=== PATIENT | female | born 1985 | race Caucasian/White ===

== ENCOUNTER 2020-11-24 02:23 | Emergency (ER) | payer OTHER ==
[~2020-11-24] VITALS: Ht 167.6 cm; Wt 79.5 kg
[2020-11-24] MEDS ORDERED: NS 1,000 ML IV ONE (02:45)
[2020-11-24 02:53] LABS: HEMATOCRIT 44.3 % (36.0-47.0); HEMOGLOBIN 14.7 g/dl (12.0-15.5); MEAN CORPUSCULAR HEMOGLOBIN 26.8 pg (27.0-33.0); MEAN CORPUSCULAR HGB CONC 33.2 g/dl (32.0-36.5); MEAN CORPUSCULAR VOLUME 80.8 fl (80.0-96.0); PLATELET COUNT, AUTOMATED 280 10^3/uL (150-450); RED BLOOD COUNT 5.48 10^6/uL (4.00-5.40); WHITE BLOOD COUNT 16.7 10^3/uL (4.0-10.0)
[2020-11-24 03:34] LABS: ACETAMINOPHEN LEVEL < 2.0 UG/ML (10.0-30.0); ALBUMIN 4.2 GM/DL (3.2-5.2); ALT/SGPT 31 U/L (12-78); BILIRUBIN,DIRECT 0.3 MG/DL (0.0-0.2); BILIRUBIN,TOTAL 1.3 MG/DL (0.2-1.0); BLOOD UREA NITROGEN 10 MG/DL (7-18); CALCIUM LEVEL 9.4 MG/DL (8.5-10.1); CARBON DIOXIDE LEVEL 19 MEQ/L (21-32); CHLORIDE LEVEL 106 MEQ/L (98-107); CREATININE FOR GFR 0.95 MG/DL (0.55-1.30); ETHYL ALCOHOL (ETHANOL) < 0.003 % (0.000-0.010); GLOMERULAR FILTRATION RATE > 60.0 (>60); GLUCOSE, FASTING 312 MG/DL (70-100); SALICYLATE LEVEL 2.7 MG/DL (5.0-30.0); SODIUM LEVEL 138 MEQ/L (136-145); TOTAL PROTEIN 8.1 GM/DL (6.4-8.2)
[2020-11-24 04:00] VITALS: BP 137/74
== END 2020-11-24 04:25 | disposition home or self-care (01) ==
LOC: M ED 02:23
DX: F19.129 Other psychoactive substance abuse with intoxication, unspecified (principal); Z88.0 Allergy status to penicillin

== ENCOUNTER 2022-04-01 16:54 | Emergency (ER) | payer OTHER ==
[~2022-04-01] VITALS: Ht 162.6 cm; Wt 86.4 kg
[2022-04-01 16:55] VITALS: BP 118/78
== END 2022-04-01 20:15 | disposition left against medical advice (07) ==
LOC: M ED 16:54
DX: Z53.21 Procedure and treatment not carried out due to patient leaving prior to being seen by health care provider (principal)